=== PATIENT | female | born 1995 | race Caucasian/White ===

== ENCOUNTER 2016-08-08 22:12 | Emergency (ER) | payer MEDICAID ==
[~2016-08-08] VITALS: Ht 170.2 cm; Wt 75.0 kg
[2016-08-08] MEDS ORDERED: HYDROcodone/APAP 5/325 TABLET ONE (22:52)
[2016-08-08] MEDS ORDERED: ONDANSETRON ODT 4 MG ONE (22:52)
[2016-08-08] MEDS ORDERED: ONDANSETRON ODT 4 MG PO ONE (23:00)
[2016-08-08] MEDS ORDERED: HYDROcodone/APAP 5/325 TABLET PO ONE (23:00)
[2016-08-08 23:22] VITALS: BP 133/67
== END 2016-08-08 23:24 | disposition home or self-care (01) ==
LOC: ED 23:18
DX: M06.821 Other specified rheumatoid arthritis, right elbow (principal); M06.831 Other specified rheumatoid arthritis, right wrist; M06.861 Other specified rheumatoid arthritis, right knee; M06.871 Other specified rheumatoid arthritis, right ankle and foot; M06.822 Other specified rheumatoid arthritis, left elbow; M06.832 Other specified rheumatoid arthritis, left wrist; M06.862 Other specified rheumatoid arthritis, left knee; M06.872 Other specified rheumatoid arthritis, left ankle and foot; Z88.0 Allergy status to penicillin
CPT/HCPCS: 99284; J7512; Q0162